=== PATIENT | female | born 1935 | race Caucasian/White ===

== ENCOUNTER 2017-04-12 13:22 | Outpatient (CLI) | payer MEDICARE, OTHER ==
--- NOTE | 2017-04-12 16:04 | RAD ---
PA AND LATERAL CHEST: Date: 04-12-17 History: Chest wall deformity. Comparison: 08-09-16 FINDINGS: Cardiac silhouette and pulmonary vasculature are within normal limits. The lungs remain clear. There is minimal symmetric pleural and parenchymal scarring. Osteopenia is again present. There has been no interval change from the prior exam. 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 IMPRESSION: Stable chest without evidence for acute cardiopulmonary process. POS: [facility]
== END 2017-04-12 13:23 | disposition home or self-care (01) ==
LOC: RAD-FRANK 13:22
PROVIDERS: ATTEND Nurse Practitioner Family
DX: M95.4 Acquired deformity of chest and rib (principal)
CPT/HCPCS: 71020

== ENCOUNTER 2018-08-31 08:31 | Outpatient (CLI) | payer MEDICARE ==
--- NOTE | 2018-08-31 08:58 | RAD ---
RIGHT SHOULDER THREE VIEWS: History: Pain after a fall. Comparison: 2015 FINDINGS: There is no acute fracture or malalignment. Visualized ribs are unremarkable. Mild degenerative good es of the acromioclavicular joint. IMPRESSION: No acute abnormality. POS: [facility]
--- NOTE | 2018-08-31 09:29 | RAD ---
CHEST TWO VIEWS: History: Fall. Comparison: 2017 FINDINGS: Lungs are hyperinflated. No pneumothorax. No effusion. Mild tortuosity of the aorta. No acute displaced rib fracture. IMPRESSION: Mild lung hyperinflation suggesting obstructive pulmonary disease. No acute intrathoracic abnormality . POS: [facility]
== END 2018-08-31 08:32 | disposition home or self-care (01) ==
LOC: RAD-FRANK 08:31
PROVIDERS: ATTEND Nurse Practitioner Family
DX: M25.511 Pain in right shoulder (principal); J98.4 Other disorders of lung; W19.XXXA Unspecified fall, initial encounter
CPT/HCPCS: 71046

== ENCOUNTER 2020-01-10 07:42 | Outpatient (CLI) | payer MEDICARE ==
--- NOTE | 2020-01-10 10:04 | ULT ---
BILATERAL RENAL ULTRASOUND WITH BRAVO SCALE AND COLOR FLOW AND SPECTRAL DOPPLER IMAGING: Date: 01/10/2020 HISTORY: Chronic renal failure. FINDINGS: The right kidney measures 9.2 cm in length and the left kidney measures 10.0 cm in length. No focal m ass or hydronephrosis is seen on either side. No shadowing calculi are noted. The urinary bladder is unremarkable with a volume of 58 mL. The peak systolic velocity in the right renal artery measures 61 cm/sec and in the left renal artery measures 48 cm/sec with renal artery-aortic ratios of 0.85 on the right and 0.67 on the left. The res istive indices measure 0.64 on the right and 0.71 on the left. IMPRESSION: Unremarkable exam. POS: [facility]
== END 2020-01-10 07:43 | disposition home or self-care (01) ==
LOC: BICULT 07:42
PROVIDERS: ATTEND Internal Medicine Nephrology
DX: I13.10 Hypertensive heart and chronic kidney disease without heart failure, with stage 1 through stage 4 chronic kidney disease, or unspecified chronic kidney disease (principal); N18.9 Chronic kidney disease, unspecified; N17.9 Acute kidney failure, unspecified; E78.5 Hyperlipidemia, unspecified; I73.9 Peripheral vascular disease, unspecified; M19.90 Unspecified osteoarthritis, unspecified site
CPT/HCPCS: 76770; 93975

== ENCOUNTER 2020-03-27 09:16 | Outpatient (CLI) | payer MEDICARE ==
--- NOTE | 2020-03-27 09:29 | RAD ---
XR Shoulder Rt 3 View STANDARD HISTORY: Right shoulder pain COMPARISON: 08/31/2018 FINDINGS: No fracture or dislocation is identified. Mild degenerative changes in the acromioclavicular joint ar e again seen.
== END 2020-03-27 09:17 | disposition home or self-care (01) ==
LOC: RAD-FRANK 09:16
PROVIDERS: ATTEND Nurse Practitioner Family
DX: M25.511 Pain in right shoulder (principal)

== ENCOUNTER 2020-05-05 16:06 | Outpatient (CLI) | payer MEDICARE ==
--- NOTE | 2020-05-05 16:46 | RAD ---
XR Knee Rt 3 View History: Acute pain of right knee Comparison: None. Findings: No significant joint effusion. No acute displaced fracture or malalignment. Likely artifact ual sagittally oriented lucency of the lateral aspect lateral tibial plateau. Mild chondrocalcinosis. Impression: 1. No acute displaced fracture or malalignment. 2. Mild-moderate chondrocalcinosis can be seen with calcium pyrophosphate deposition disease.
--- NOTE | 2020-05-05 16:48 | RAD ---
XR Foot Rt 3 View STANDARD History: Pain Comparison: None. Findings: Nondisplaced fifth metatarsal fracture involving the mid and distal diaphysis with one shaf t width medial displacement. This is a spiral type fracture. Lisfranc interval appears be maintained. Toes are intact. Impression: Mildly comminuted spiral type fracture of the mid and distal small toe metatarsal diaphys is with one shaft width medial displacement.
== END 2020-05-05 16:07 | disposition home or self-care (01) ==
LOC: BICRAD 16:06
PROVIDERS: ATTEND Nurse Practitioner Family
DX: M25.561 Pain in right knee (principal); M79.671 Pain in right foot; S99.101A Unspecified physeal fracture of right metatarsal, initial encounter for closed fracture; M11.261 Other chondrocalcinosis, right knee

== ENCOUNTER 2020-05-18 11:05 | Outpatient (CLI) | payer MEDICARE ==
--- NOTE | 2020-05-18 11:30 | RAD ---
XR Chest Pa Lat STANDARD HISTORY: Preoperative evaluation for foot surgery COMPARISON: 08/31/2018 FINDINGS: The heart size is normal. The aorta is tortuous. The lungs are well expanded without focal areas of consolidation, pneumothorax or pleural effusions. IMPRESSION: No radiographic evidence of acute cardiopulmonary process.
== END 2020-05-18 11:06 | disposition home or self-care (01) ==
LOC: BICRAD 11:05
PROVIDERS: ATTEND Nurse Practitioner Family
DX: Z01.818 Encounter for other preprocedural examination (principal)
CPT/HCPCS: 71046